=== PATIENT | male | born 1945 | race Caucasian/White ===

== ENCOUNTER 2019-09-16 23:14 | Inpatient (IN) | payer MEDICARE ==
[~2019-09-16] VITALS: Ht 172.7 cm; Wt 83.0 kg
[~2019-09-16 23:14] MED LIST: ASPI-496 PO; ATEN25TA PO; CEPH-368 PO; EZET10TA70 PO; FENO145T19 PO; GLUC1TAB27 PO; OMEG500C PO; OXYC5CAP2 PO
--- NOTE | 2019-09-16 23:35 | NUR ---
Pt bib [facility] with c/o GLFx2 tonight. 2nd fall was in BR and pt hit head with small abrasion and contusion noted. Pt denies LOC. Pt denies pain or complaints. Per EMS, pt was unable to ambulate after 2nd fall. + ETOH tonight. States 4 glasses of wine which is his normal intake per day. Pt is A&Ox4. Moving all extremities. Keiry blood thinners. No acute neuro changes noted. Discussed POC. Call light in reach.
--- NOTE | 2019-09-16 23:53 | NUR ---
Pt [facility].
[2019-09-17 00:06] LABS: MEAN CORPUSCULAR HEMOGLOBIN 39.4 pg (27.5-34.5); MEAN CORPUSCULAR HGB CONC 33.4 g/dL (33.2-36.2); MEAN CORPUSCULAR VOLUME 117.9 fL (81-97); MEAN PLATELET VOLUME 8.6 fL (7.4-10.4); PLATELET COUNT 151 x10^3/uL (130-400); RED BLOOD COUNT 3.17 x10^6/uL (4.38-5.82); RED CELL DISTRIBUTION WIDTH 15.9 % (9.4-14.8)
--- NOTE | 2019-09-17 00:21 | NUR ---
Pt returned from CT. No acute changes. , Andrew, called to discuss her concerns. States pt has had abd bloating and bilat leg swelling. Also with black stools. ERP updated to 's concerns. Warm blanket given. Denies further needs. Call light in reach.
[2019-09-17 00:34] LABS: MD YES
[2019-09-17 00:35] LABS: ALANINE AMINOTRANSFERASE 29 U/L (12-78); ALBUMIN 2.3 g/dL (3.4-5.0); ANION GAP 9 mmol/L (5-15); CALCIUM 8.3 mg/dL (8.5-10.1); CHLORIDE 104 mmol/L (98-107); CREATININE 0.66 mg/dL (0.7-1.3)
[2019-09-17 00:38] LABS: ALKALINE PHOSPHATASE 144 U/L (45-117); BILIRUBIN,TOTAL 1.3 mg/dL (0.2-1.0); TOTAL PROTEIN 6.6 g/dL (6.4-8.2)
[2019-09-17 00:39] LABS: BASOS#(MANUAL) 0.14 x10^3/uL (0-0.1); BASOS% (MANUAL) 2 % (0-1); LYMPH#(MANUAL) 1.28 x10^3/uL (1-3.4); LYMPHS% (MANUAL) 18 % (22-44); MONOS#(MANUAL) 1.21 x10^3/uL (0.3-2.7); MONOS% (MANUAL) 17 % (2-9); SEG#(MANUAL) 4.47 x10^3/uL (1.8-6.8); SEGS% (MANUAL) 63 % (42-75)
[2019-09-17 00:40] LABS: <PLATELET ESTIMATE> ADEQUATE; <PLT MORPHOLOGY> NORMAL PLT MORPH
[2019-09-17] MEDS ORDERED: MAGNESIUM SULFATE 1 GM, THIAMINE 100 MG, FOLIC ACID 1 MG, MVI ADULT 10 ML in SODIUM CHL... IV ONE (01:00)
--- NOTE | 2019-09-17 01:15 | NUR ---
IV access obtained and labs draw. Pt updated to POC. Place on monitor. Assisted pt to bedside to use urinal. Call light in reach.
[2019-09-17] MEDS ORDERED: DIPH,PERTUSS(ACELL),TET VAC/PF 0.5 ML IM-VACC ONE ×2 (01:21→01:30)
[2019-09-17 01:36] LABS: INTERNATIONAL NORMALIZED RATIO 1.3 (0.93-1.1); PROTHROMBIN TIME 13.8 Seconds (9.6-11.5)
[2019-09-17] MEDS ORDERED: NEOSPORIN OINT. PKT 1 PACKET ONE (01:38)
[2019-09-17 01:40] LABS: TROPONIN I < 0.015 ng/mL (0.000-0.045)
--- NOTE | 2019-09-17 01:55 | NUR ---
Wound care completed. IV fluids infusing via pump. ERP in to discuss POC. Pt to be admitted. Pt refusing to wear O2 at this time. VSS. Message left for per pt's request. Call light in reach.
[2019-09-17 02:07] LABS: MICROSCOPIC INDICATED
[2019-09-17] MEDS ORDERED: MULT-717 PO (02:31)
[2019-09-17] MEDS ORDERED: OMEP-110 PO (02:31)
[2019-09-17] MEDS ORDERED: ATEN50TA41 PO (02:31)
[2019-09-17] MEDS ORDERED: [UNRECOGNIZED DRUG - REMARK] PO (02:31)
[2019-09-17] MEDS ORDERED: ACET-1600 PO (02:31)
[2019-09-17] MEDS ORDERED: LORA-439 PO (02:31)
--- NOTE | 2019-09-17 02:51 | NUR ---
Dr Blanchard at bedside to eval for admission. Pt to be transferred to floor.
--- NOTE | 2019-09-17 02:53 | NUR ---
, Andrew, cell phone number [phone]
[2019-09-17 03:23] VITALS: BP 126/85
[2019-09-17] MEDS ORDERED: hydrALAzine 20 MG/ML, 1ML IVPush PRN (04:30)
[2019-09-17] MEDS ORDERED: ONDANSETRON 2MG/ML, 2ML IVPush PRN (04:30)
[2019-09-17] MEDS ORDERED: LORazepam 2 MG/ML, 1ML IVPush PRN (04:30)
[2019-09-17] MEDS ORDERED: ACETAMINOPHEN 325 MG TABLET PO PRN (04:30)
[2019-09-17] MEDS: THIAMINE 100 MG in SODIUM CHLORIDE 0.9% 50 ML IV SCH (06:14)
[2019-09-17 06:35] VITALS: BP 137/91
[2019-09-17] MEDS ORDERED: LIDOCAINE 1%, 10ML ONE (09:56)
[2019-09-17 11:30] VITALS: BP 123/82
[2019-09-17 13:51] VITALS: BP 128/82
[2019-09-17] MEDS ORDERED: LORazepam 1MG TABLET PO PRN (16:00)
[2019-09-17 16:40] LABS: OCCULT BLOOD NEGATIVE (NEGATIVE)
[2019-09-17] MEDS: LORazepam 1MG TABLET PO SCH ×2 (17:29→21:21)
[2019-09-17] MEDS: SPIRONOLACTONE 25 MG TABLET PO SCH (17:29)
[2019-09-17 19:49] VITALS: BP 140/89
[2019-09-18 00:30] VITALS: BP 132/79
[2019-09-18 00:32] VITALS: BP 120/82
[2019-09-18 00:35] VITALS: BP 157/89
[2019-09-18] MEDS: THIAMINE 100 MG in SODIUM CHLORIDE 0.9% 50 ML IV SCH (05:21)
[2019-09-18 06:28] LABS: MEAN CORPUSCULAR HEMOGLOBIN 38.8 pg (27.5-34.5); MEAN CORPUSCULAR HGB CONC 33.4 g/dL (33.2-36.2); MEAN CORPUSCULAR VOLUME 116.4 fL (81-97); MEAN PLATELET VOLUME 8.3 fL (7.4-10.4); PLATELET COUNT 117 x10^3/uL (130-400); RED BLOOD COUNT 3.26 x10^6/uL (4.38-5.82); RED CELL DISTRIBUTION WIDTH 16.4 % (9.4-14.8)
[2019-09-18 06:35] LABS: ALANINE AMINOTRANSFERASE 24 U/L (12-78); ANION GAP 9 mmol/L (5-15); CHLORIDE 111 mmol/L (98-107); CREATININE 0.51 mg/dL (0.7-1.3)
[2019-09-18 06:37] LABS: ALKALINE PHOSPHATASE 132 U/L (45-117); BILIRUBIN,TOTAL 2.3 mg/dL (0.2-1.0)
[2019-09-18 06:48] LABS: BASOPHILS # (AUTO) 0.03 x10^3/uL (0-0.1); BASOPHILS % (AUTO) 1 % (0-1); EOSINOPHILS # (AUTO) 0.02 x10^3/uL (0-0.4); EOSINOPHILS % (AUTO) 0 % (1-7); LYMPHOCYTES # (AUTO) 1.01 x10^3/uL (1-3.4); LYMPHOCYTES % (AUTO) 18 % (22-44); MD SCAN; MONOCYTES % (AUTO) 19 % (2-9); NEUTROPHILS # (AUTO) 3.56 x10^3/uL (1.8-6.8); NEUTROPHILS % (AUTO) 62 % (42-75)
[2019-09-18] MEDS: SPIRONOLACTONE 25 MG TABLET PO SCH (08:25)
[2019-09-18] MEDS: LORazepam 1MG TABLET PO SCH ×3 (08:25→21:00)
[2019-09-18] MEDS: FUROSEMIDE 20 MG TABLET PO SCH (08:27)
[2019-09-18 08:28] VITALS: BP 149/109
[2019-09-18] MEDS ORDERED: ATENOLOL 50 MG TABLET PO SCH (13:30)
[2019-09-18 13:33] VITALS: BP 148/98
[2019-09-18] MEDS: OMEPRAZOLE 20 MG CAPSULE.DR PO SCH (13:34)
[2019-09-18 18:42] VITALS: BP 134/71
[2019-09-18] MEDS: MELATONIN 3 MG TABLET PO SCH (21:30)
[2019-09-19] VITALS (9 sets, daily range): BP systolic 112–150; BP diastolic 73–91
[2019-09-19] MEDS: OMEPRAZOLE 20 MG CAPSULE.DR PO SCH (05:14)
[2019-09-19] MEDS: ATENOLOL 50 MG TABLET PO SCH (05:14)
[2019-09-19] MEDS: THIAMINE 100 MG in SODIUM CHLORIDE 0.9% 50 ML IV SCH (05:14)
[2019-09-19 06:53] LABS: ANION GAP 9 mmol/L (5-15); CALCIUM 7.8 mg/dL (8.5-10.1); CHLORIDE 112 mmol/L (98-107); CREATININE 0.53 mg/dL (0.7-1.3)
[2019-09-19] MEDS: FUROSEMIDE 20 MG TABLET PO SCH ×2 (08:15→18:09)
[2019-09-19] MEDS: LORazepam 1MG TABLET PO SCH ×3 (08:16→20:31)
[2019-09-19] MEDS ORDERED: SPIRONOLACTONE 50 MG TABLET PO SCH (09:00)
[2019-09-19] MEDS ORDERED: POTASSIUM CHLORIDE 20 MEQ TAB.ER.PRT PO ONE (18:00)
[2019-09-19] MEDS: MELATONIN 3 MG TABLET PO SCH (20:31)
[2019-09-20 02:46] VITALS: BP 125/86
[2019-09-20 06:27] VITALS: BP 125/86
[2019-09-20] MEDS: ATENOLOL 50 MG TABLET PO SCH (06:29)
[2019-09-20] MEDS: FUROSEMIDE 20 MG TABLET PO SCH ×3 (06:29→20:02)
[2019-09-20] MEDS: OMEPRAZOLE 20 MG CAPSULE.DR PO SCH (06:29)
[2019-09-20 06:50] LABS: ALANINE AMINOTRANSFERASE 21 U/L (12-78); ALBUMIN 1.9 g/dL (3.4-5.0); ANION GAP 7 mmol/L (5-15); CALCIUM 8.1 mg/dL (8.5-10.1); CHLORIDE 112 mmol/L (98-107); CREATININE 0.57 mg/dL (0.7-1.3)
[2019-09-20 06:52] LABS: ALKALINE PHOSPHATASE 112 U/L (45-117); BILIRUBIN,TOTAL 2.1 mg/dL (0.2-1.0); TOTAL PROTEIN 5.8 g/dL (6.4-8.2)
[2019-09-20 07:54] VITALS: BP 147/96
[2019-09-20] MEDS: SPIRONOLACTONE 50 MG TABLET PO SCH ×2 (09:38→14:28)
[2019-09-20] MEDS: LORazepam 1MG TABLET PO SCH ×3 (09:38→20:02)
[2019-09-20] MEDS: THIAMINE 100MG TABLET PO SCH (09:38)
[2019-09-20 13:34] VITALS: BP 126/87
[2019-09-20] MEDS ORDERED: LIDOCAINE 1%, 10ML ONE ×2 (14:37→14:53)
[2019-09-20] MEDS ORDERED: LORazepam 0.5MG TABLET ONE (19:57)
[2019-09-20 20:01] VITALS: BP 124/86
[2019-09-20] MEDS: MELATONIN 3 MG TABLET PO SCH (20:02)
[2019-09-21 03:56] VITALS: BP 125/63
[2019-09-21 05:13] LABS: ANION GAP 8 mmol/L (5-15); CALCIUM 8.1 mg/dL (8.5-10.1); CHLORIDE 110 mmol/L (98-107); CREATININE 0.56 mg/dL (0.7-1.3)
[2019-09-21 06:23] VITALS: BP 132/98
[2019-09-21] MEDS: ATENOLOL 50 MG TABLET PO SCH (06:24)
[2019-09-21] MEDS: OMEPRAZOLE 20 MG CAPSULE.DR PO SCH (06:24)
[2019-09-21] MEDS: SPIRONOLACTONE 50 MG TABLET PO SCH (06:24)
[2019-09-21] MEDS ORDERED: MAGNESIUM SULFATE PMX 4GM/100M 100 ML IV ONE (07:00)
[2019-09-21] MEDS ORDERED: POTASSIUM CHLORIDE 20 MEQ TAB.ER.PRT PO ONE (07:00)
[2019-09-21] MEDS ORDERED: THIA100T67 PO (07:50)
[2019-09-21] MEDS ORDERED: MAGN400T22 PO (07:50)
[2019-09-21] MEDS ORDERED: MELA3TAB31 PO (07:50)
[2019-09-21] MEDS ORDERED: FURO20TA3 PO (07:50)
[2019-09-21] MEDS ORDERED: SPIR50TA PO (07:50)
[2019-09-21] MEDS: THIAMINE 100MG TABLET PO SCH (07:53)
[2019-09-21] MEDS: LORazepam 1MG TABLET PO SCH (07:54)
[2019-09-21] MEDS: FUROSEMIDE 20 MG TABLET PO SCH (07:54)
[2019-09-21 12:55] VITALS: BP 127/88
== END 2019-09-21 13:05 | disposition home or self-care (01) | DRG 442 ==
LOC: ED 23:43 → EDIP 09-17 02:33 → 4EST 09-17 03:39 → DCLOUNGE 09-21 12:53
PROVIDERS: ADMIT Family Medicine; ATTEND Internal Medicine
PROC: 0W993ZZ Drainage of Right Pleural Cavity, Percutaneous Approach (ICD-10-PCS; principal; 2019-09-17)
PROC: 0W9G3ZZ Drainage of Peritoneal Cavity, Percutaneous Approach (ICD-10-PCS; 2019-09-20)
DX: K72.90 Hepatic failure, unspecified without coma (principal); J90 Pleural effusion, not elsewhere classified; I48.20 Chronic atrial fibrillation, unspecified; R18.8 Other ascites; E87.1 Hypo-osmolality and hyponatremia; I95.1 Orthostatic hypotension; E86.0 Dehydration; D53.9 Nutritional anemia, unspecified; E83.42 Hypomagnesemia; E86.1 Hypovolemia; E87.6 Hypokalemia; F10.220 Alcohol dependence with intoxication, uncomplicated; F32.9 Major depressive disorder, single episode, unspecified; F51.04 Psychophysiologic insomnia; W01.0XXA Fall on same level from slipping, tripping and stumbling without subsequent striking against object, initial encounter; I11.0 Hypertensive heart disease with heart failure; N28.1 Cyst of kidney, acquired; K21.9 Gastro-esophageal reflux disease without esophagitis; M47.9 Spondylosis, unspecified; S00.01XA Abrasion of scalp, initial encounter; Y90.8 Blood alcohol level of 240 mg/100 ml or more; Z79.899 Other long term (current) drug therapy; Z87.891 Personal history of nicotine dependence; Y93.89 Activity, other specified; Y92.89 Other specified places as the place of occurrence of the external cause; Y99.8 Other external cause status; Z23 Encounter for immunization
CPT/HCPCS: 32555; 36415; 49083; 70450; 71045; 72125; 76700; 76705; 80048; 80053; 80307; 81001; 82042; 82140; 82150; 82272; 82607; 82728; 82945; 83540; 83550; 83615; 83735; 83880; 83986; 84100; 84157; 84443; 84466; 84484; 85025; 85610; 85730; 87015; 87070; 87075; 87102; 87116; 87205; 87206; 88112; 88305; 88341; 88342; 89051; 90715; 93005; 93306; G0378; J3411; J3475; J7030